=== PATIENT | female | born 1965 | race Caucasian/White ===

== ENCOUNTER → 2017-09-04 | Outpatient (CLI) | payer OTHER | END | disposition home or self-care (01) | LOC: CFH 10:26 | PROVIDERS: ATTEND Family Medicine | DX: Z12.31 Encounter for screening mammogram for malignant neoplasm of breast (principal); R92.1 Mammographic calcification found on diagnostic imaging of breast | CPT/HCPCS: 77063; 77067 ==

== ENCOUNTER → 2017-09-17 | Outpatient (CLI) | payer OTHER | END | disposition home or self-care (01) | LOC: CFH 13:12 | PROVIDERS: ATTEND Family Medicine | DX: R92.1 Mammographic calcification found on diagnostic imaging of breast (principal) | CPT/HCPCS: 77065 ==

== ENCOUNTER → 2017-10-08 | Outpatient (CLI) | payer OTHER ==
[~2017-10-08] MED LIST: LIDOCAINE 1%, 20ML ONE; SODIUM BICARBONATE 4.2%, 5ML ONE
== END | disposition home or self-care (01) ==
LOC: CFH 07:58
PROVIDERS: ATTEND Family Medicine
DX: R92.1 Mammographic calcification found on diagnostic imaging of breast (principal)
CPT/HCPCS: 19081; 77065; 88305; J3490

== ENCOUNTER → 2017-10-15 | Outpatient (CLI) | payer OTHER | END | disposition home or self-care (01) | LOC: CFH 09:17 | PROVIDERS: ATTEND Family Medicine | DX: D05.11 Intraductal carcinoma in situ of right breast (principal); R92.1 Mammographic calcification found on diagnostic imaging of breast | CPT/HCPCS: 19081; 77065; J3490; 88305 ==

== ENCOUNTER → 2017-11-21 | Outpatient (CLI) | payer OTHER ==
[~2017-11-21] MED LIST changes: +ALEN70TA5 PO; +BACL-19 PO; +BUPIVACAINE/PF-EPI 0.5% 1:200K ONE; +BUPR100T11 PO; +CHOL500050 PO; +ESCI20TA PO; +FOLI0.4T2 PO; +HYDR-3307 PO; +HYDR25TA11 PO; +ISOSULFAN BLUE 10 MG/ML, 5ML IV ONE; +LACT1TAB13 PO; +LEVO25TA2 PO; -LIDOCAINE 1%, 20ML ONE; +MECL25TA4 PO; +MELO15TA24 PO; +MONT10TA9 PO; +ROSU10TA PO; -SODIUM BICARBONATE 4.2%, 5ML ONE
== END ==
LOC: STAR 12:30
PROVIDERS: ATTEND Surgery
DX: Z02.9 Encounter for administrative examinations, unspecified (principal)

== ENCOUNTER 2017-11-25 19:57 | Day surgery (SDC) | payer OTHER ==
[2017-11-21 13:10] VITALS: BP 137/82
[~2017-11-25] VITALS: Ht 154.9 cm; Wt 76.4 kg
[~2017-11-25 19:57] MED LIST changes: +ACETAMINOPHEN 500 MG TABLET PO ONE; +ALBUTEROL SULFATE 2.5 MG/3 ML NPPB PRN; +ALBUTEROL/IPRATROPIUM 2.5MG/0.5MG, 3 ML NPPB PRN; +BACITRACIN 50,000 UNIT ONE; +BUPIVACAINE/EPI 0.5% 1:200K INFIL ONE; -BUPIVACAINE/PF-EPI 0.5% 1:200K ONE; +CEFAZOLIN 1,000 MG ONE; +DEXAMETHASONE 4 MG/ML, 1ML ONE; +EPHEDRINE 50 MG/ML, 1ML IVPush PRN; +FAMOTIDINE 20 MG TABLET PO ONE; +FENTANYL PF 100 MCG/2ML ONE; +GABAPENTIN 300 MG CAPSULE PO ONE; +GENTAMICIN 80 MG/2 ML ONE; +HYDROcodone/APAP 7.5-325MG/15ML UDC PO PRN; +HYDROmorphone 1 MG/ML, 1ML IV PRN; -ISOSULFAN BLUE 10 MG/ML, 5ML IV ONE; +LABETALOL 5MG/ML, 20ML IV PRN; +LACTATED RINGERS 1,000 ML IV SCH; +MEPERIDINE/PF 25MG/0.5ML IVPush PRN; +MIDAZOLAM 1 MG/ML, 2ML IV PRN; +MIDAZOLAM 1 MG/ML, 2ML ONE; +ONDANSETRON 2MG/ML, 2ML IV PRN; +ONDANSETRON 2MG/ML, 2ML ONE; +ONDANSETRON ODT 8 MG PO ONE; +OXYcodone 5 MG/5 ML ORAL.SOL UDC ONE; +OXYcodone 5 MG/5 ML ORAL.SOL UDC PO PRN; +OXYcodone IR 5MG TABLET PO ONE; +PROMETHAZINE 25 MG/ML, 1ML IV PRN; +PROPOFOL 10 MG/ML, 20ML ONE; +SCOPOLAMINE PATCH, 1.5MG PATCH.TD72 TD ONE; +hydrALAzine 20 MG/ML, 1ML IV PRN
[2017-11-25] MEDS ORDERED: FENTANYL PF 100 MCG/2ML ONE (20:02)
[2017-11-25] MEDS: FENTANYL PF 100 MCG/2ML IV PRN ×2 (20:04→20:10)
[2017-11-25] MEDS ORDERED: LACTATED RINGERS 1,000 ML IV SCH ×2 (20:30→21:00)
[2017-11-25] MEDS ORDERED: HYDROmorphone 2 MG/ML, 1ML IV PRN (21:00)
[2017-11-25] MEDS ORDERED: HYDROcodone/APAP 5/325 TABLET PO PRN (21:00)
[2017-11-25] MEDS ORDERED: ONDANSETRON 2MG/ML, 2ML IVPush PRN (21:00)
== END 2017-11-25 21:56 | disposition home or self-care (01) ==
LOC: RAD 19:57 → 4NOR 19:59 → RAD 21:56
PROVIDERS: ATTEND Surgery
DX: D05.11 Intraductal carcinoma in situ of right breast (principal); R59.1 Generalized enlarged lymph nodes; E78.00 Pure hypercholesterolemia, unspecified; F41.9 Anxiety disorder, unspecified; J45.909 Unspecified asthma, uncomplicated; E03.9 Hypothyroidism, unspecified; F32.9 Major depressive disorder, single episode, unspecified; G89.29 Other chronic pain; F17.210 Nicotine dependence, cigarettes, uncomplicated; Z90.710 Acquired absence of both cervix and uterus; Z98.890 Other specified postprocedural states; Z72.89 Other problems related to lifestyle; Z79.899 Other long term (current) drug therapy
CPT/HCPCS: 15777; 19303; 19357; 38525; 38792; 88305; 88307; 88333; A9541; C1729; C1762; J0690; J1100; J1580; J2250; J2405; J2704; J3010; J7120; Q0162

== ENCOUNTER → 2017-12-05 | Outpatient (CLI) | payer OTHER ==
[~2017-12-05] MED LIST changes: -ACETAMINOPHEN 500 MG TABLET PO ONE; -ALBUTEROL SULFATE 2.5 MG/3 ML NPPB PRN; -ALBUTEROL/IPRATROPIUM 2.5MG/0.5MG, 3 ML NPPB PRN; -BACITRACIN 50,000 UNIT ONE; -BUPIVACAINE/EPI 0.5% 1:200K INFIL ONE; -CEFAZOLIN 1,000 MG ONE; -DEXAMETHASONE 4 MG/ML, 1ML ONE; -EPHEDRINE 50 MG/ML, 1ML IVPush PRN; -FAMOTIDINE 20 MG TABLET PO ONE; -FENTANYL PF 100 MCG/2ML ONE; -GABAPENTIN 300 MG CAPSULE PO ONE; -GENTAMICIN 80 MG/2 ML ONE; -HYDROcodone/APAP 7.5-325MG/15ML UDC PO PRN; -HYDROmorphone 1 MG/ML, 1ML IV PRN; -LABETALOL 5MG/ML, 20ML IV PRN; -LACTATED RINGERS 1,000 ML IV SCH; -MEPERIDINE/PF 25MG/0.5ML IVPush PRN; -MIDAZOLAM 1 MG/ML, 2ML IV PRN; -MIDAZOLAM 1 MG/ML, 2ML ONE; -ONDANSETRON 2MG/ML, 2ML IV PRN; -ONDANSETRON 2MG/ML, 2ML ONE; -ONDANSETRON ODT 8 MG PO ONE; -OXYcodone 5 MG/5 ML ORAL.SOL UDC ONE; -OXYcodone 5 MG/5 ML ORAL.SOL UDC PO PRN; -OXYcodone IR 5MG TABLET PO ONE; -PROMETHAZINE 25 MG/ML, 1ML IV PRN; -PROPOFOL 10 MG/ML, 20ML ONE; -SCOPOLAMINE PATCH, 1.5MG PATCH.TD72 TD ONE; -hydrALAzine 20 MG/ML, 1ML IV PRN
== END | disposition home or self-care (01) ==
LOC: ROC 09:53
PROVIDERS: ATTEND Radiology Radiation Oncology
DX: C50.411 Malignant neoplasm of upper-outer quadrant of right female breast (principal); Z87.891 Personal history of nicotine dependence
CPT/HCPCS: 99213; G0463

== ENCOUNTER → 2017-12-10 | Outpatient (CLI) | payer OTHER ==
[~2017-12-10] MED LIST changes: +CIPR500T87 PO; +CLIN300C8 PO
== END | disposition home or self-care (01) ==
LOC: CFH 13:57
PROVIDERS: ATTEND Internal Medicine Hematology & Oncology
DX: Z02.9 Encounter for administrative examinations, unspecified (principal)

== ENCOUNTER → 2017-12-11 | Outpatient (CLI) | payer OTHER ==
[~2017-12-11] MED LIST changes: -CIPR500T87 PO; -CLIN300C8 PO
== END | disposition home or self-care (01) ==
LOC: PETCFH 08:56
PROVIDERS: ATTEND Internal Medicine Hematology & Oncology
DX: C50.411 Malignant neoplasm of upper-outer quadrant of right female breast (principal)
CPT/HCPCS: 78815; A9552

== ENCOUNTER 2017-12-20 17:56 | Day surgery (SDC) | payer OTHER ==
[~2017-12-20] VITALS: Ht 154.9 cm; Wt 175.0 kg
[2017-12-20 14:36] VITALS: BP 120/71
[2017-12-20] MEDS: FENTANYL PF 100 MCG/2ML IV PRN ×4 (16:56→17:27)
[~2017-12-20 17:56] MED LIST changes: +ACETAMINOPHEN 325 MG TABLET ONE; +ACETAMINOPHEN 325 MG TABLET PO PRN; +ALBUTEROL SULFATE 2.5 MG/3 ML NPPB PRN; +BACITRACIN 50,000 UNIT ONE; +BUPIVACAINE/PF 0.5% ONE; +BUPIVACAINE/PF-EPI 0.5% 1:200K IM ONE; +CIPR500T87 PO; +CLIN300C8 PO; +DEXAMETHASONE 4 MG/ML, 1ML ONE; +EPINEPHRINE 1 MG/ML, 1ML ONE; +FENTANYL PF 100 MCG/2ML ONE; +HYDROmorphone 1 MG/ML, 1ML IV PRN; +LABETALOL 5MG/ML, 20ML IV PRN; +MEPERIDINE/PF 25MG/0.5ML IVPush PRN; +MIDAZOLAM 1 MG/ML, 2ML ONE; +ONDANSETRON 2MG/ML, 2ML ONE; +OXYcodone 5 MG/5 ML ORAL.SOL UDC ONE; +OXYcodone 5 MG/5 ML ORAL.SOL UDC PO PRN; +PROMETHAZINE 25 MG/ML, 1ML IV PRN; +PROPOFOL 10 MG/ML, 20ML ONE; +VANCOMYCIN 1,000 MG ONE; +hydrALAzine 20 MG/ML, 1ML IV PRN
[2017-12-20] MEDS ORDERED: HYDROcodone/APAP 10/325 MG TABLET PO PRN (18:30)
[2017-12-20] MEDS ORDERED: LACTATED RINGERS 1,000 ML IV SCH (18:30)
[2017-12-20] MEDS ORDERED: ATORVASTATIN 20 MG TABLET PO SCH (21:00)
[2017-12-20] MEDS ORDERED: CLINDAMYCIN 300 MG CAPSULE PO SCH (21:00)
[2017-12-20] MEDS ORDERED: MECLIZINE CHEWABLE 25 MG TAB PO SCH (21:00)
[2017-12-20] MEDS ORDERED: CIPROFLOXACIN 500 MG TABLET PO SCH (21:00)
[2017-12-21] MEDS ORDERED: LEVOTHYROXINE 25 MCG TABLET PO SCH (06:00)
[2017-12-21] MEDS ORDERED: BUPROPION SR 100 MG TABLET PO SCH (09:00)
[2017-12-21] MEDS ORDERED: FOLIC ACID 1 MG TABLET PO SCH (09:00)
[2017-12-21] MEDS ORDERED: BACLOFEN 10 MG TABLET PO SCH (09:00)
[2017-12-21] MEDS ORDERED: LACTOBACILLUS CHEW TABLET PO SCH (09:00)
[2017-12-21] MEDS ORDERED: MELOXICAM 15 MG TABLET PO SCH (09:00)
[2017-12-21] MEDS ORDERED: CITALOPRAM 20 MG TABLET PO SCH (09:00)
[2017-12-21] MEDS ORDERED: MONTELUKAST 10 MG TABLET PO SCH (09:00)
[2017-12-22] MEDS ORDERED: ERGOCALCIFEROL 50,000 UNIT CAPSULE PO SCH (09:00)
[2017-12-24] MEDS ORDERED: ALENDRONATE 70 MG TABLET PO SCH (06:30)
== END 2017-12-20 19:45 | disposition home or self-care (01) ==
LOC: 4NOR 17:56 → UNDOADMIN 17:56 → 4NOR 17:56 → OR 17:56 → 4NOR 18:37 → UNDODISIN 19:45 → OR 19:45
PROVIDERS: ATTEND Surgery Plastic and Reconstructive Surgery
DX: T85.79XA Infection and inflammatory reaction due to other internal prosthetic devices, implants and grafts, initial encounter (principal); F41.9 Anxiety disorder, unspecified; E03.9 Hypothyroidism, unspecified; E78.00 Pure hypercholesterolemia, unspecified; J45.909 Unspecified asthma, uncomplicated; Y83.8 Other surgical procedures as the cause of abnormal reaction of the patient, or of later complication, without mention of misadventure at the time of the procedure; Y92.89 Other specified places as the place of occurrence of the external cause; Z85.3 Personal history of malignant neoplasm of breast; Z87.891 Personal history of nicotine dependence; Z90.710 Acquired absence of both cervix and uterus; Z79.899 Other long term (current) drug therapy
CPT/HCPCS: 11971; C1729; J0171; J1100; J2250; J2405; J2704; J3010; J3370; J3490

== ENCOUNTER → 2017-12-24 | Outpatient (CLI) | payer OTHER ==
[~2017-12-24] MED LIST changes: -ACETAMINOPHEN 325 MG TABLET ONE; -ACETAMINOPHEN 325 MG TABLET PO PRN; -ALBUTEROL SULFATE 2.5 MG/3 ML NPPB PRN; -BACITRACIN 50,000 UNIT ONE; -BUPIVACAINE/PF 0.5% ONE; -BUPIVACAINE/PF-EPI 0.5% 1:200K IM ONE; -DEXAMETHASONE 4 MG/ML, 1ML ONE; -EPINEPHRINE 1 MG/ML, 1ML ONE; -FENTANYL PF 100 MCG/2ML ONE; -HYDROmorphone 1 MG/ML, 1ML IV PRN; -LABETALOL 5MG/ML, 20ML IV PRN; -MEPERIDINE/PF 25MG/0.5ML IVPush PRN; -MIDAZOLAM 1 MG/ML, 2ML ONE; -ONDANSETRON 2MG/ML, 2ML ONE; -OXYcodone 5 MG/5 ML ORAL.SOL UDC ONE; -OXYcodone 5 MG/5 ML ORAL.SOL UDC PO PRN; -PROMETHAZINE 25 MG/ML, 1ML IV PRN; -PROPOFOL 10 MG/ML, 20ML ONE; -VANCOMYCIN 1,000 MG ONE; -hydrALAzine 20 MG/ML, 1ML IV PRN
== END | disposition home or self-care (01) ==
LOC: CFH 06:42
PROVIDERS: ATTEND Internal Medicine Hematology & Oncology
DX: C50.411 Malignant neoplasm of upper-outer quadrant of right female breast (principal); E78.5 Hyperlipidemia, unspecified; Z87.891 Personal history of nicotine dependence
CPT/HCPCS: 93306

== ENCOUNTER 2017-12-25 10:47 | Day surgery (SDC) | payer OTHER ==
[~2017-12-25] VITALS: Ht 154.9 cm; Wt 78.6 kg
[~2017-12-25 10:47] MED LIST changes: +BUPIVACAINE/PF 0.5% ONE; +HEPARIN 1,000 UNITS/ML, 10ML ONE
[2017-12-25 10:59] VITALS: BP 148/66
[2017-12-25] MEDS ORDERED: VANCOMYCIN 1,250 MG in SODIUM CHLORIDE 0.9% 250 ML IV ONE (11:00)
[2017-12-25] MEDS ORDERED: SCOPOLAMINE PATCH, 1.5MG PATCH.TD72 TD ONE (12:00)
[2017-12-25] MEDS ORDERED: ACETAMINOPHEN 500 MG TABLET PO ONE (12:00)
[2017-12-25] MEDS ORDERED: ONDANSETRON ODT 8 MG PO ONE (12:00)
[2017-12-25] MEDS ORDERED: LACTATED RINGERS 1,000 ML IV SCH (12:00)
[2017-12-25] MEDS ORDERED: GABAPENTIN 300 MG CAPSULE PO ONE (12:00)
[2017-12-25] MEDS ORDERED: FENTANYL PF 100 MCG/2ML ONE ×2 (12:53→14:45)
[2017-12-25] MEDS ORDERED: MIDAZOLAM 1 MG/ML, 2ML ONE (12:53)
[2017-12-25] MEDS ORDERED: PROPOFOL 10 MG/ML, 20ML ONE (13:14)
[2017-12-25] MEDS ORDERED: ONDANSETRON 2MG/ML, 2ML ONE (13:14)
[2017-12-25] MEDS ORDERED: EPHEDRINE 50 MG/ML, 1ML ONE (13:14)
[2017-12-25] MEDS ORDERED: METOCLOPRAMIDE 5 MG/ML, 2ML ONE (13:14)
[2017-12-25] MEDS ORDERED: PHENYLEPHRINE 10 MG/ML ONE (13:14)
[2017-12-25] MEDS ORDERED: DEXAMETHASONE 4 MG/ML, 1ML ONE (13:14)
[2017-12-25] MEDS ORDERED: BUPIVACAINE/EPI 0.5% 1:200K INFIL ONE (13:36)
[2017-12-25] MEDS ORDERED: OXYcodone 5 MG/5 ML ORAL.SOL UDC ONE ×2 (14:24→14:46)
[2017-12-25] MEDS: OXYcodone 5 MG/5 ML ORAL.SOL UDC PO PRN ×2 (14:25→14:45)
[2017-12-25] MEDS ORDERED: ONDANSETRON 2MG/ML, 2ML IVPush PRN (14:30)
[2017-12-25] MEDS ORDERED: FENTANYL PF 100 MCG/2ML IV PRN (14:30)
[2017-12-25] MEDS ORDERED: LABETALOL 5MG/ML, 20ML IV PRN (14:30)
[2017-12-25] MEDS ORDERED: MIDAZOLAM 1 MG/ML, 2ML IV PRN (14:30)
[2017-12-25] MEDS ORDERED: MEPERIDINE/PF 25MG/0.5ML IVPush PRN (14:30)
[2017-12-25] MEDS ORDERED: HYDROmorphone 2 MG/ML, 1ML IV PRN (14:30)
== END 2017-12-25 16:08 | disposition home or self-care (01) ==
LOC: OUT 10:47
PROVIDERS: ATTEND Surgery
DX: C50.911 Malignant neoplasm of unspecified site of right female breast (principal); F41.9 Anxiety disorder, unspecified; G89.29 Other chronic pain; E78.5 Hyperlipidemia, unspecified; E66.9 Obesity, unspecified; F17.210 Nicotine dependence, cigarettes, uncomplicated; J45.909 Unspecified asthma, uncomplicated; Z79.899 Other long term (current) drug therapy; Z87.39 Personal history of other diseases of the musculoskeletal system and connective tissue; Z98.890 Other specified postprocedural states; Z90.710 Acquired absence of both cervix and uterus; Z72.89 Other problems related to lifestyle
CPT/HCPCS: 36561; 71045; 77001; C1769; C1788; J1100; J1644; J2250; J2370; J2405; J2704; J2765; J3010; J3370; J3490; J7050; J7120

== ENCOUNTER → 2018-03-09 | Outpatient (CLI) | payer OTHER ==
[~2018-03-09] MED LIST changes: -BUPIVACAINE/PF 0.5% ONE; -HEPARIN 1,000 UNITS/ML, 10ML ONE
== END | disposition home or self-care (01) ==
LOC: CFH 10:25
PROVIDERS: ATTEND Internal Medicine Hematology & Oncology
DX: Z09 Encounter for follow-up examination after completed treatment for conditions other than malignant neoplasm (principal); Z85.3 Personal history of malignant neoplasm of breast; Z90.11 Acquired absence of right breast and nipple
CPT/HCPCS: 0399T; 93306

== ENCOUNTER → 2018-06-03 | Outpatient (CLI) | payer OTHER ==
[~2018-06-03] MED LIST changes: -ALEN70TA5 PO; +ALEN70TA6 PO
== END | disposition home or self-care (01) ==
LOC: ROC 11:11
PROVIDERS: ATTEND Radiology Radiation Oncology
DX: Z08 Encounter for follow-up examination after completed treatment for malignant neoplasm (principal); C50.411 Malignant neoplasm of upper-outer quadrant of right female breast; Z78.0 Asymptomatic menopausal state
CPT/HCPCS: 99212; G0463

== ENCOUNTER 2018-06-11 14:41 | Outpatient (CLI) | payer OTHER ==
[2018-06-11] MEDS ORDERED: ENOX80SY4 SQ (15:23)
== END 2018-06-11 23:59 | disposition home or self-care (01) ==
LOC: STAR 14:41
PROVIDERS: ATTEND Surgery Plastic and Reconstructive Surgery
DX: Z02.9 Encounter for administrative examinations, unspecified (principal)

== ENCOUNTER 2018-06-16 12:49 | Day surgery (SDC) | payer OTHER ==
[~2018-06-16] VITALS: Ht 154.9 cm; Wt 77.0 kg
[~2018-06-16 12:49] MED LIST changes: +ENOX80SY4 SQ
[2018-06-16] MEDS ORDERED: LACTATED RINGERS 1,000 ML IV SCH (13:12)
[2018-06-16 13:34] VITALS: BP 124/60
[2018-06-16] MEDS ORDERED: GABAPENTIN 300 MG CAPSULE PO ONE (14:00)
[2018-06-16] MEDS ORDERED: DIAZEPAM 5 MG TABLET PO ONE (14:00)
[2018-06-16] MEDS ORDERED: ACETAMINOPHEN 500 MG TABLET PO ONE (14:00)
[2018-06-16] MEDS ORDERED: FENTANYL PF 250 MCG/5ML ONE (14:18)
[2018-06-16] MEDS ORDERED: MIDAZOLAM 1 MG/ML, 2ML ONE (14:18)
[2018-06-16] MEDS ORDERED: CEFAZOLIN 1,000 MG ONE (14:51)
[2018-06-16] MEDS ORDERED: BACITRACIN 50,000 UNIT ONE (14:51)
[2018-06-16] MEDS ORDERED: BUPIVACAINE/PF-EPI 0.5% 1:200K ONE (15:02)
[2018-06-16] MEDS ORDERED: GENTAMICIN 80 MG/2 ML ONE (15:26)
[2018-06-16] MEDS ORDERED: LIDOCAINE 1%-EPI 1:100K, 30ML ONE (15:32)
[2018-06-16] MEDS ORDERED: LIDOCAINE 1%, 20ML ONE (15:33)
[2018-06-16] MEDS ORDERED: DEXAMETHASONE 4 MG/ML, 1ML ONE (15:42)
[2018-06-16] MEDS ORDERED: CLINDAMYCIN 150 MG/ML, 6ML ONE (15:43)
[2018-06-16] MEDS ORDERED: ONDANSETRON 2MG/ML, 2ML ONE (15:58)
[2018-06-16] MEDS ORDERED: PROPOFOL 10 MG/ML, 20ML ONE (15:58)
[2018-06-16] MEDS ORDERED: ROCURONIUM 10MG/ML,5ML ONE (15:59)
[2018-06-16] MEDS ORDERED: OXYcodone 5 MG/5 ML ORAL.SOL UDC ONE (16:53)
[2018-06-16] MEDS ORDERED: FENTANYL PF 100 MCG/2ML ONE (16:53)
[2018-06-16] MEDS ORDERED: LABETALOL 5MG/ML, 20ML IV PRN (17:00)
[2018-06-16] MEDS ORDERED: MEPERIDINE/PF 25MG/0.5ML IVPush PRN (17:00)
[2018-06-16] MEDS ORDERED: hydrALAzine 20 MG/ML, 1ML IV PRN (17:00)
[2018-06-16] MEDS ORDERED: HYDROmorphone 2 MG/ML, 1ML IVPush PRN (17:00)
[2018-06-16] MEDS ORDERED: OXYcodone 5 MG/5 ML ORAL.SOL UDC PO PRN (17:00)
[2018-06-16] MEDS ORDERED: PROMETHAZINE 25 MG/ML, 1ML IV PRN (17:00)
[2018-06-16] MEDS ORDERED: ONDANSETRON 2MG/ML, 2ML IV PRN (17:00)
[2018-06-16] MEDS: FENTANYL PF 100 MCG/2ML IV PRN ×2 (17:02→17:10)
== END 2018-06-16 18:50 | disposition home or self-care (01) ==
LOC: OUT 12:49
PROVIDERS: ATTEND Surgery Plastic and Reconstructive Surgery
DX: Z45.811 Encounter for adjustment or removal of right breast implant (principal); Z85.3 Personal history of malignant neoplasm of breast; Z90.11 Acquired absence of right breast and nipple
CPT/HCPCS: 19357; C1729; J0690; J1100; J1580; J2250; J2405; J2704; J3010; J3490; J7120

== ENCOUNTER 2018-07-09 12:41 | Day surgery (SDC) | payer OTHER ==
[~2018-07-09] VITALS: Ht 154.9 cm; Wt 76.6 kg
[~2018-07-09 12:41] MED LIST changes: +BACITRACIN 50,000 UNIT ONE; +CEFAZOLIN 1,000 MG ONE; +DEXAMETHASONE 4 MG/ML, 1ML ONE; +EPHEDRINE 50 MG/ML, 1ML ONE; -FENTANYL PF 100 MCG/2ML ONE; +METOCLOPRAMIDE 5 MG/ML, 2ML ONE; -MIDAZOLAM 1 MG/ML, 2ML ONE; +ONDANSETRON 2MG/ML, 2ML ONE; +PROPOFOL 10 MG/ML, 20ML ONE; -XARELTO PO
[2018-07-09 13:11] VITALS: BP 148/82
[2018-07-09] MEDS ORDERED: CLIN300C8 PO (13:11)
[2018-07-09] MEDS ORDERED: XARELTO PO (13:11)
[2018-07-09] MEDS ORDERED: LACTATED RINGERS 1,000 ML IV SCH (13:17)
[2018-07-09] MEDS ORDERED: BUPIVACAINE/PF-EPI 0.5% 1:200K ONE (13:51)
[2018-07-09] MEDS ORDERED: LIDOCAINE 1%-EPI 1:100K, 30ML ONE (14:35)
[2018-07-09] MEDS ORDERED: OXYcodone 5 MG/5 ML ORAL.SOL UDC PO PRN (15:30)
[2018-07-09] MEDS ORDERED: MEPERIDINE/PF 25MG/0.5ML IVPush PRN (15:30)
[2018-07-09] MEDS ORDERED: MIDAZOLAM 1 MG/ML, 2ML IV PRN (15:30)
[2018-07-09] MEDS ORDERED: LABETALOL 5MG/ML, 20ML IV PRN (15:30)
[2018-07-09] MEDS ORDERED: ONDANSETRON 2MG/ML, 2ML IVPush PRN (15:30)
[2018-07-09] MEDS ORDERED: FENTANYL PF 100 MCG/2ML ONE ×2 (15:51→16:07)
[2018-07-09] MEDS ORDERED: HYDROmorphone 1 MG/ML, 1ML ONE ×2 (15:51→16:07)
[2018-07-09] MEDS ORDERED: OXYcodone 5 MG/5 ML ORAL.SOL UDC ONE (15:52)
[2018-07-09] MEDS: HYDROmorphone 1 MG/ML, 1ML IV PRN ×3 (15:55→16:14)
[2018-07-09] MEDS: FENTANYL PF 100 MCG/2ML IV PRN ×2 (15:55→16:04)
== END 2018-07-09 17:40 | disposition home or self-care (01) ==
LOC: OUT 12:41
PROVIDERS: ATTEND Surgery Plastic and Reconstructive Surgery
DX: T85.49XA Other mechanical complication of breast prosthesis and implant, initial encounter (principal); Y83.8 Other surgical procedures as the cause of abnormal reaction of the patient, or of later complication, without mention of misadventure at the time of the procedure; Y92.89 Other specified places as the place of occurrence of the external cause; Z90.11 Acquired absence of right breast and nipple
CPT/HCPCS: 11971; 87015; 87070; 87075; 87077; 87102; 87116; 87205; 87206; 88302; C1729; J0690; J1100; J1170; J2405; J2704; J2765; J3010; J3490; J7120; 87186

== ENCOUNTER → 2018-07-09 | Outpatient (CLI) | payer OTHER ==
[~2018-07-09] MED LIST changes: +FENTANYL PF 100 MCG/2ML ONE; +MIDAZOLAM 1 MG/ML, 2ML ONE; -ROSU10TA PO; +ROSU10TA2 PO; +XARELTO PO
== END | disposition home or self-care (01) ==
LOC: ROC 07:09
PROVIDERS: ATTEND Radiology Radiation Oncology
DX: Z08 Encounter for follow-up examination after completed treatment for malignant neoplasm (principal); C50.411 Malignant neoplasm of upper-outer quadrant of right female breast
CPT/HCPCS: 99212; J2250; J3010; G0463

== ENCOUNTER → 2018-07-23 | Outpatient (CLI) | payer OTHER ==
[~2018-07-23] MED LIST changes: -BACITRACIN 50,000 UNIT ONE; -CEFAZOLIN 1,000 MG ONE; -DEXAMETHASONE 4 MG/ML, 1ML ONE; -EPHEDRINE 50 MG/ML, 1ML ONE; -METOCLOPRAMIDE 5 MG/ML, 2ML ONE; +OMNIPAQUE 350 MG/ML, 100ML BOTTLE ONE; -ONDANSETRON 2MG/ML, 2ML ONE; -PROPOFOL 10 MG/ML, 20ML ONE; +XARELTO PO
== END | disposition home or self-care (01) ==
LOC: RAD 13:30
PROVIDERS: ATTEND Radiology Radiation Oncology
DX: C50.411 Malignant neoplasm of upper-outer quadrant of right female breast (principal); M47.817 Spondylosis without myelopathy or radiculopathy, lumbosacral region; Z98.890 Other specified postprocedural states
CPT/HCPCS: 71260; 74177; Q9967

== ENCOUNTER → 2018-09-18 | Outpatient (CLI) | payer OTHER ==
[~2018-09-18] MED LIST changes: -OMNIPAQUE 350 MG/ML, 100ML BOTTLE ONE
== END | disposition home or self-care (01) ==
LOC: CFH 15:38
PROVIDERS: ATTEND Internal Medicine Hematology & Oncology
DX: Z51.12 Encounter for antineoplastic immunotherapy (principal); Z51.11 Encounter for antineoplastic chemotherapy; C50.411 Malignant neoplasm of upper-outer quadrant of right female breast; E78.5 Hyperlipidemia, unspecified
CPT/HCPCS: 93306

== ENCOUNTER → 2018-10-05 | Outpatient (CLI) | payer OTHER | END | disposition home or self-care (01) | LOC: CFH 11:09 | PROVIDERS: ATTEND Internal Medicine Hematology & Oncology | DX: Z12.31 Encounter for screening mammogram for malignant neoplasm of breast (principal) | CPT/HCPCS: 77063; 77067 ==

== ENCOUNTER 2018-10-14 08:29 | Outpatient (CLI) | payer OTHER | END 2018-10-14 23:59 | disposition home or self-care (01) | LOC: ROC 08:29 | PROVIDERS: ATTEND Radiology Radiation Oncology | DX: Z08 Encounter for follow-up examination after completed treatment for malignant neoplasm (principal); Z85.3 Personal history of malignant neoplasm of breast; Z90.11 Acquired absence of right breast and nipple; Z79.899 Other long term (current) drug therapy; Z78.0 Asymptomatic menopausal state | CPT/HCPCS: 99212; G0463 ==

== ENCOUNTER 2019-01-04 12:45 | Outpatient (CLI) | payer OTHER ==
[~2019-01-04 12:45] MED LIST changes: -HYDR-3307 PO; +HYDR-36 PO; +HYDR-826 PO; -HYDR25TA11 PO
== END 2019-01-04 23:59 | disposition home or self-care (01) ==
LOC: CFH 12:45 → EDSTATUS 13:00 → CFH 23:59
PROVIDERS: ATTEND Internal Medicine Hematology & Oncology
DX: I82.622 Acute embolism and thrombosis of deep veins of left upper extremity (principal); C50.411 Malignant neoplasm of upper-outer quadrant of right female breast

== ENCOUNTER → 2019-03-16 | Outpatient (CLI) | payer OTHER | END | disposition home or self-care (01) | LOC: CFH 16:09 | PROVIDERS: ATTEND Internal Medicine Hematology & Oncology | DX: I82.622 Acute embolism and thrombosis of deep veins of left upper extremity (principal); C50.411 Malignant neoplasm of upper-outer quadrant of right female breast; Z87.891 Personal history of nicotine dependence ==

== ENCOUNTER → 2019-09-17 | Outpatient (CLI) | payer OTHER ==
[~2019-09-17] MED LIST changes: +HYDR-3246 PO; -HYDR-36 PO; +MECL-101 PO; -MECL25TA4 PO; +MONT10TA11 PO; -MONT10TA9 PO
== END | disposition home or self-care (01) ==
LOC: EDSTATUS 07-12 10:30 → CFH 13:34
PROVIDERS: ATTEND Internal Medicine Hematology & Oncology
DX: C50.411 Malignant neoplasm of upper-outer quadrant of right female breast (principal); I82.C12 Acute embolism and thrombosis of left internal jugular vein

== ENCOUNTER 2020-12-26 07:27 | Outpatient (CLI) | payer OTHER ==
[~2020-12-26 07:27] MED LIST changes: -ALEN70TA6 PO; +ALEN70TA77 PO; -CLIN300C8 PO; +CLIN300C9 PO; -ESCI20TA PO; +ESCI20TA8 PO; -FOLI0.4T2 PO; +FOLI0.4T5 PO; -HYDR-3246 PO; +HYDR-3248 PO; -MONT10TA11 PO; +MONT10TA17 PO
[2020-12-26] MEDS ORDERED: TRIAMCINOLONE ACETONIDE 40 MG/ML, 1ML ONE (07:32)
[2020-12-26] MEDS ORDERED: ROPivacaine/PF 0.2%, 10 ML ONE (07:32)
[2020-12-26] MEDS ORDERED: LIDOCAINE 1%, 10ML ONE (07:32)
[2020-12-26 11:59] LABS: CELLS COUNTED 147
== END 2020-12-26 23:59 | disposition home or self-care (01) ==
LOC: RAD 07:27
PROVIDERS: ATTEND Emergency Medicine
DX: M25.511 Pain in right shoulder (principal)
CPT/HCPCS: 20610; 77002; 87070; 87077; 87147; 87186; 87205; 89051; J3490; J2795; J3301